=== PATIENT | male | born 1965 | race Hispanic/Latino ===

== ENCOUNTER 2019-02-06 08:10 | Emergency (ER) | payer OTHER ==
--- NOTE | 2019-02-06 09:06 | RAD REPORT ---
EXAM DESCRIPTION: CT - CTHCSPWOC - 02/06/2019 8:45 am CLINICAL HISTORY: Trauma, head and neck injury. left arm pain and numbness COMPARISON: Head C Spine Mpr Wo Con dated 01/09/2017 TECHNIQUE: Axial 5 mm thick images of the head were obtained. Axial 2 mm thick images of the cervical spine were obtained with sagittal and coronal reconstruction images generated and reviewed. All CT scans are performed using dose optimization technique as appropriate and may include automated exposure control or mA/KV adjustment according to patient size. FINDINGS: CT HEAD WITHOUT CONTRAST: No acute hemorrhage, hydrocephalus or extra-axial collection is identified.No areas of brain edema or midline shift. The paranasal sinuses and mastoids are clear.The calvarium is intact. CT CERVICAL SPINE WITHOUT CONTRAST: No fracture or subluxation.No prevertebral soft tissues swelling is identified. IMPRESSION: No acute intracranial or cervical spine findings.
[2019-02-06 09:24] LABS: BUN Blood Urea Nitrogen 12 mg/dL (7-18); Bicarbonate 25 mmol/L (21-32); Glucose Level 271 mg/dL (74-106); Potassium 4.1 mmol/L (3.5-5.1); Sodium Level 137 mmol/L (136-145); Troponin (Emerg Dept Use Only) < 0.02 ng/mL (0.0-0.045)
--- NOTE | 2019-02-06 09:30 | ER ---
Nurse's Notes [facility] Name: Ender Herrera Age: 53 yrs Sex: Male : 1965 Arrival Date: 02/06/2019 Time: 08:12 Bed 5 Private MD: Diagnosis: Paresthesia of skin;Pain in left upper arm Presentation: 02/06 08:32 Presenting complaint: Patient states: pain to back of left arm/left shoulder, iw intermittent since last Tuesday, has been taking ibuprofen/aspirin with no relief, started having numbness/tingling to left fingers this morning. Transition of care: patient was not received from another setting of care. 08:32 Method Of Arrival: Ambulatory iw 08:35 Onset of symptoms was February 02, 2019. Risk Assessment: Do you want to hurt yourself or iw someone else? Patient reports no desire to harm self or others. Initial Sepsis Screen: Does the patient meet any 2 criteria? No. Patient's initial sepsis screen is negative. Does the patient have a suspected source of infection? No. Patient's initial sepsis screen is negative. Care prior to arrival: None. 08:35 Acuity: MEMO 3 iw Historical: - Allergies: 08:38 pravastatin; iw 08:38 atorvastatin; iw - Home Meds: 08:38 clopidogrel 75 mg oral tab 1 tab once daily [Active]; Vitamin D Oral daily [Active]; iw metformin 1,000 mg Oral tab 1 tab 2 times per day [Active]; Tresiba FlexTouch U-100 100 unit/mL (3 mL) subcutaneous inpn 50 units daily [Active]; losartan 50 mg oral tab 1 tab once daily [Active]; gabapentin 300 mg oral cap daily [Active]; sildenafil 20 mg oral tab daily [Active]; - PMHx: 08:38 Myocardial infarction; iw - PSHx: 08:38 Heart stents; iw - Immunization history:: Adult Immunizations up to date. - Social history:: Smoking status: Patient uses tobacco products, denies chronic smoking, but will smoke occasionally. - Family history:: not pertinent. - Ebola Screening: : Patient negative for fever greater than or equal to 101.5 degrees Fahrenheit, and additional compatible Ebola Virus Disease symptoms Patient denies exposure to infectious person Patient denies travel to an Ebola-affected area in the 21 days before illness onset No symptoms or risks identified at this time. - Hospitalizations: : No recent hospitalization is reported. Screenin:57 Abuse screen: Denies threats or abuse. Nutritional screening: No deficits noted. tw2 Tuberculosis screening: No symptoms or risk factors identified. Fall Risk None identified. Assessment: 08:58 General: Appears in no apparent distress. well groomed, Behavior is calm, cooperative, tw2 appropriate for age. Pain: Complains of pain in left shoulder. Neuro: Level of Consciousness is awake, alert, obeys commands, Oriented to person, place, time, situation. Cardiovascular: Heart tones S1 S2 Patient's skin is warm and dry. Respiratory: Airway is patent Respiratory effort is even, unlabored, Respiratory pattern is regular, symmetrical, Breath sounds are clear bilaterally. GI: No signs and/or symptoms were reported involving the gastrointestinal system. Abdomen is round non-distended, Bowel sounds present X 4 quads. : No signs and/or symptoms were reported regarding the genitourinary system. EENT: No signs and/or symptoms were reported regarding the EENT system. Derm: No signs and/or symptoms reported regarding the dermatologic system. Musculoskeletal: Reports numbness in left hand. 09:50 Reassessment: Patient appears in no apparent distress at this time. No changes from tw2 previously documented assessment. Patient and/or family updated on plan of care and expected duration. Pain level reassessed. Patient is alert, oriented x 3, equal unlabored respirations, skin warm/dry/pink. Vital Signs: 08:38 BP 126 / 82; Pulse 65; Resp 16; Temp 98.2; Pulse Ox 98% on R/A; Weight 104.33 kg; iw Height 5 ft. 7 in. (170.18 cm); Pain 6/10; 09:18 BP 153 / 95; Pulse 73; Resp 16; Pulse Ox 100% on R/A; tw2 08:38 Body Mass Index 36.02 (104.33 kg, 170.18 cm) iw ED Course: 08:12 Patient arrived in ED. rg4 08:20 Bed in low position. Call light in reach. tw2 08:23 Morro Crain MD is Attending Physician. rn 08:35 Triage completed. iw 08:38 Arm band placed on. iw 08:49 Kimmy Hodge RN is Primary Nurse. tw2 08:57 CT Head C Spine In Process Unspecified. EDMS 08:57 Inserted saline lock: 20 gauge in right antecubital area, using aseptic technique. tw2 Blood collected. 08:59 BMP Sent. tw2 09:08 EKG done, by airbrush artist technical. reviewed by Morro Crain MD. 3 09:50 No provider procedures requiring assistance completed. IV discontinued, intact, tw2 bleeding controlled, No redness/swelling at site. Pressure dressing applied. Administered Medications: 09:32 Drug: Decadron 10 mg Route: IM; Site: right deltoid; 09:50 Follow up: Response: No adverse reaction tw2 Outcome: 09:29 Discharge ordered by MD. rn 09:50 Patient left the ED. bd 09:50 Discharged to home ambulatory. tw2 09:50 Condition: stable 09:50 Discharge instructions given to patient, Instructed on discharge instructions, follow up and referral plans. medication usage, Demonstrated understanding of instructions, follow-up care, medications, Prescriptions given X 1. Signatures: Dispatcher [employer] EDNH Bela Ronquillo Gilberto Null, RN TAINA Eulalio, Donna, RN TAINA Morro Crain MD MD rn Wise, Tara, RN RN [facility] Margarita Fuentes 4 Krista Salas [facility]
--- NOTE | 2019-02-06 09:30 | EDPHYS ---
Physician Documentation [facility] Name: Ender Herrera Age: 53 yrs Sex: Male : 1965 Arrival Date: 02/06/2019 Time: 08:12 Bed 5 Private MD: ED Physician Morro Crain HPI: 02/06 08:32 This 53 yrs old Male presents to ER via Unassigned with complaints of Shoulder rn Pain, Numbness Of Hand. 08:32 The patient or guardian complains of pain. left shoulder. Onset: The symptoms/episode rn began/occurred 4 day(s) ago. Modifying factors: the symptoms are alleviated by nothing. The symptoms are aggravated by movement. Associated signs and symptoms: Pertinent positives: Numbness in left arm tingling, Pertinent negatives: abdominal pain, chest pain, diaphoresis, shortness of breath. Severity of symptoms: At their worst the symptoms were mild, in the emergency department the symptoms are unchanged. The patient has not experienced similar symptoms in the past. Reports 4-5 days of left shoulder/arm pain, now with tingling to fingers, no trauma, reports treating it like pinched nerve and better with icy hot and OTC meds, but tingling popped up today and he came in to make sure nothing else was happening. Pt has had heart attack in past, but denies chest pain/sob, feels nothing like previous [place].. Historical: - Allergies: 08:38 pravastatin; iw 08:38 atorvastatin; iw - Home Meds: 08:38 clopidogrel 75 mg oral tab 1 tab once daily [Active]; Vitamin D Oral daily [Active]; iw metformin 1,000 mg Oral tab 1 tab 2 times per day [Active]; Tresiba FlexTouch U-100 100 unit/mL (3 mL) subcutaneous inpn 50 units daily [Active]; losartan 50 mg oral tab 1 tab once daily [Active]; gabapentin 300 mg oral cap daily [Active]; sildenafil 20 mg oral tab daily [Active]; - PMHx: 08:38 Myocardial infarction; iw - PSHx: 08:38 Heart stents; iw - Immunization history:: Adult Immunizations up to date. - Social history:: Smoking status: Patient uses tobacco products, denies chronic smoking, but will smoke occasionally. - Family history:: not pertinent. - Ebola Screening: : Patient negative for fever greater than or equal to 101.5 degrees Fahrenheit, and additional compatible Ebola Virus Disease symptoms Patient denies exposure to infectious person Patient denies travel to an Ebola-affected area in the 21 days before illness onset No symptoms or risks identified at this time. - Hospitalizations: : No recent hospitalization is reported. ROS: 08:32 Constitutional: Negative for fever, chills, and weight loss, Eyes: Negative for injury, rn pain, redness, and discharge, Neck: Negative for injury, pain, and swelling, Cardiovascular: Negative for chest pain, palpitations, and edema, Respiratory: Negative for shortness of breath, cough, wheezing, and pleuritic chest pain, Abdomen/GI: Negative for abdominal pain, nausea, vomiting, diarrhea, and constipation, MS/Extremity: Negative for injury and deformity, Skin: Negative for injury, rash, and discoloration, Neuro: Negative for headache, tingling, and seizure. Exam: 08:32 Constitutional: This is a well developed, well nourished patient who is awake, alert, rn and in no acute distress. Ambulatory to room without difficulty or assistance. Head/Face: Normocephalic, atraumatic. Neck: Trachea midline, no thyromegaly or masses palpated, and no cervical lymphadenopathy. Supple, full range of motion without nuchal rigidity, or vertebral point tenderness. No Meningismus. Cardiovascular: Regular rate and rhythm. No pulse deficits. Respiratory: No increased work of breathing, no retractions or nasal flaring. Skin: Warm, dry with normal turgor. Normal color with no rashes, no lesions, and no evidence of cellulitis. MS/ Extremity: Pulses equal, no cyanosis. Neurovascular intact. Full, normal range of motion. Equal circumference. Neuro: Awake and alert, GCS 15, oriented to person, place, time, and situation. Cranial nerves II-XII grossly intact. Motor strength 5/5 in all extremities. Sensory grossly intact. Cerebellar exam normal. Normal gait. Vital Signs: 08:38 BP 126 / 82; Pulse 65; Resp 16; Temp 98.2; Pulse Ox 98% on R/A; Weight 104.33 kg; iw Height 5 ft. 7 in. (170.18 cm); Pain 6/10; 09:18 BP 153 / 95; Pulse 73; Resp 16; Pulse Ox 100% on R/A; tw2 08:38 Body Mass Index 36.02 (104.33 kg, 170.18 cm) iw MDM: 08:23 Patient medically screened. rn 09:27 Differential diagnosis: tendonitis, radiculopathy, referred pain. Data reviewed: vital rn signs, nurses notes, lab test result(s), EKG, radiologic studies, CT scan, and as a result, I will discharge patient. Counseling: I had a detailed discussion with the patient and/or guardian regarding: the historical points, exam findings, and any diagnostic results supporting the discharge/admit diagnosis, lab results, radiology results, the need for outpatient follow up, to return to the emergency department if symptoms worsen or persist or if there are any questions or concerns that arise at home. Response to treatment: the patient's symptoms have mildly improved after treatment, and as a result, I will discharge patient. Special discussion: I discussed with the patient/guardian in detail that at this point there is no indication for admission to the hospital. It is understood, however, that if the symptoms persist or worsen the patient needs to return immediately for re-evaluation. Based on the history and exam findings, there is no indication for further emergent testing or inpatient evaluation. I discussed with the patient/guardian the need to see the primary care provider for further evaluation of the symptoms. ED course: Pt without chest pain or sob, symptoms for a few days now with no acute findings on ecg/trop/ct head/cspine, most likely radiculopathy, will treat with steroids and pcp f/u. Return precautions given and understood.. 02/06 08:32 Order name: Troponin (emerg Dept Use Only); Complete Time: 09:27 rn 02/06 08:32 Order name: BMP; Complete Time: 09:27 rn 02/06 08:32 Order name: CT Head C Spine; Complete Time: 09:22 rn 02/06 08:32 Order name: IV Start; Complete Time: 08:57 rn 02/06 08:32 Order name: EKG; Complete Time: 08:36 rn 02/06 08:32 Order name: EKG - Nurse/Tech; Complete Time: 08:59 rn Administered Medications: 09:32 Drug: Decadron 10 mg Route: IM; Site: right deltoid; sg 09:50 Follow up: Response: No adverse reaction tw2 Disposition: 02/06/19 09:29 Discharged to Home. Impression: Paresthesia of skin, Pain in left upper arm. - Condition is Stable. - Discharge Instructions: Cervical Radiculopathy, Musculoskeletal Pain, Pain Without a Known Cause, Paresthesia. - Prescriptions for Medrol (Brando) 4 mg Oral Tablets, Dose Pack - take 1 tablet by ORAL route as directed - follow package instructions; 1 packet. - Medication Reconciliation Form, Thank You Letter, Antibiotic Education, Prescription Opioid Use, Work release form form. - Follow up: Private Physician; When: As needed; Reason: Recheck today's complaints, Re-evaluation by your physician. - Problem is an ongoing problem. - Symptoms have improved. Signatures: Dispatcher [employer] EDMS Bela Ronquillo Steven, RN RN sg Williams, Irene, RN RN iw Morro Crain MD MD rn Wise, Kimmy HER tw2 Corrections: (The following items were deleted from the chart) 09:50 09:29 02/06/2019 09:29 Discharged to Home. Impression: Paresthesia of skin; Pain in bd left upper arm. Condition is Stable. Forms are Work release form, Medication Reconciliation Form, Thank You Letter, Antibiotic Education, Prescription Opioid Use. Follow up: Private Physician; When: As needed; Reason: Recheck today's complaints, Re-evaluation by your physician. Problem is an ongoing problem. Symptoms have improved. rn
[2019-02-06] MEDS ORDERED: dexAMETHasone 10 MG/ML VIAL ONE (09:46)
--- NOTE | 2019-02-06 13:34 | EKG ---
Test Date: 2019-02-06 Test Time: 09:06:23 Hris Developer: KRISTINE MEASUREMENT RESULTS: Intervals: Rate: 67 KS: 154 QRSD: 92 QT: 404 QTc: 426 [place]: P: 53 KS: 154 QRS: -50 T: 26 INTERPRETIVE STATEMENTS: Normal sinus rhythm Left axis deviation Inferior infarct, age undetermined Anterior infarct, age undetermined Abnormal ECG Compared to ECG 01/09/2017 15:21:23 No significant changes Electronically Signed On 02-06-19 13:33:57 CDT by Cleve Gage
== END 2019-02-06 09:50 | disposition home or self-care (01) ==
LOC: ER 08:10
DX: M25.512 Pain in left shoulder (principal); R20.2 Paresthesia of skin; I25.2 Old myocardial infarction; Z72.0 Tobacco use; Z88.8 Allergy status to other drugs, medicaments and biological substances
CPT/HCPCS: 36415; 70450; 72125; 80048; 84484; 93005; 96372; 99284; J1100

== ENCOUNTER 2021-01-02 20:15 | Observation (INO) | payer OTHER, SELFPAY ==
[2021-01-02 20:52] LABS: Absolute Lymphocytes (CBC) 2.4 K/uL (0.7-4.9); Lymphocytes % 36.2 % (15.3-44.8); MPV 9.5 fL (7.6-11.3); RBC Red Blood Cell Count 4.38 M/uL (4.33-5.43)
[2021-01-02 21:01] LABS: Protime INR 0.87
[2021-01-02 21:14] LABS: ALT/SGPT 27 U/L (12-78); AST/SGOT 10 U/L (15-37); Albumin 3.7 g/dL (3.4-5.0); Alkaline Phosphatase 169 U/L (45-117); BUN Blood Urea Nitrogen 12 mg/dL (7-18); Bicarbonate 27 mmol/L (21-32); Bilirubin Direct < 0.1 mg/dL (0-0.2); Bilirubin Total 0.2 mg/dL (0.2-1.0); Glucose Level 328 mg/dL (74-106); NT PRO-BNP 77 pg/mL (<125); Potassium 3.8 mmol/L (3.5-5.1); Protein, Total 7.5 g/dL (6.4-8.2); Sodium Level 140 mmol/L (136-145); Troponin (Emerg Dept Use Only) < 0.02 ng/mL (0.0-0.045)
--- NOTE | 2021-01-02 21:44 | RAD REPORT ---
EXAM DESCRIPTION: RAD - Chest Single View - 01/02/2021 9:37 pm CLINICAL HISTORY: CHEST PAIN Chest pain. COMPARISON: <Comparisons> FINDINGS: Portable technique limits examination quality. The lungs are grossly clear. The heart is normal in size. No displaced fractures. IMPRESSION: No acute intrathoracic process suspected.
--- NOTE | 2021-01-02 22:44 | ER ---
Nurse's Notes [facility] Name: Ender Herrera Age: 55 yrs Sex: Male : 1965 Arrival Date: 01/02/2021 Time: 20:37 Bed 3 Private MD: Diagnosis: Chest pain, unspecified Presentation: 01/02 20:39 Chief complaint: Patient states: chest pain started at 1815 this evening, took aspirin ca1 325 mg x 2 tabs, a little relief. Now pain radiates to the back. HX of OR on 2012. Denies N/V/dizziness. Coronavirus screen: Client denies travel out of the [place] in the last 14 days. At this time, the client does not indicate any symptoms associated with coronavirus-19. Ebola Screen: Patient negative for fever greater than or equal to 101.5 degrees Fahrenheit, and additional compatible Ebola Virus Disease symptoms Patient denies exposure to infectious person. Patient denies travel to an Ebola-affected area in the 21 days before illness onset. No symptoms or risks identified at this time. Initial Sepsis Screen: Does the patient meet any 2 criteria? No. Patient's initial sepsis screen is negative. Does the patient have a suspected source of infection? No. Patient's initial sepsis screen is negative. Risk Assessment: Do you want to hurt yourself or someone else? Patient reports no desire to harm self or others. 20:39 Method Of Arrival: Ambulatory ca1 20:39 Acuity: MEMO 3 ca1 22:36 Onset of symptoms was January 02, 2021. bb Historical: - Allergies: 20:42 atorvastatin; ca1 20:42 pravastatin; ca1 - Home Meds: 20:42 clopidogrel 75 mg Oral tab 1 tab once daily [Active]; ca1 20:43 metformin 1,000 mg Oral tab 1 tab 2 times per day [Active]; ca1 - PMHx: 20:42 Myocardial infarction; ca1 20:43 Diabetes - IDDM; Hypertension; High Cholesterol; ca1 - PSHx: 20:42 Heart stents; ca1 - Immunization history:: Client reports receiving the 2nd dose of the Covid vaccine, Client reports receiving the 1st dose of the Covid vaccine, Flu vaccine is up to date. - Social history:: Smoking status: Patient reports the use of cigarette tobacco products, smokes one-half pack cigarettes per day. Screenin:09 Abuse screen: Denies threats or abuse. Nutritional screening: No deficits noted. ea Tuberculosis screening: No symptoms or risk factors identified. Fall Risk IV access (20 points). Assessment: 22:34 General: Appears in no apparent distress. Behavior is calm, cooperative. Pain: Denies bb pain. Pain does not radiate. Pain began suddenly. Neuro: Level of Consciousness is awake, alert, obeys commands, Oriented to person, place, time, situation. Cardiovascular: Capillary refill < 3 seconds Patient's skin is warm and dry. Rhythm is sinus rhythm. Respiratory: Airway is patent Respiratory effort is even, unlabored, Respiratory pattern is regular. GI: No signs and/or symptoms were reported involving the gastrointestinal system. Derm: Skin is pink, warm \T\ dry. 23:24 Reassessment: Patient is alert, oriented x 3, equal unlabored respirations, skin bb warm/dry/pink. pt resting quietly, awaiting room assignment. 01/03 01:11 Reassessment: pt appears to be sleeping, eyes closed, resp unlabored, report called to venkata De Paz RN for room 208. Vital Signs: 01/02 20:39 BP 122 / 77; Pulse 80; Resp 17 S; Temp 97.8(TE); Pulse Ox 97% on R/A; Weight 94.35 kg ca1 (R); Height 5 ft. 7 in. (170.18 cm) (R); Pain 1/10; 22:16 BP 137 / 86; Pulse 69; Resp 22; Pulse Ox 97% on R/A; Pain 0/10; bb 23:25 BP 114 / 79; Pulse 68; Resp 18 S; Pulse Ox 95% on R/A; bb 01/03 01:11 BP 116 / 76; Pulse 64; Resp 14 S; Pulse Ox 97% on R/A; bb 01/02 20:39 Body Mass Index 32.58 (94.35 kg, 170.18 cm) ca1 ED Course: 01/02 20:37 Patient arrived in ED. bp1 20:38 Initial lab(s) drawn, by me, sent to lab. Inserted saline lock: 20 gauge in right ca1 forearm, using aseptic technique. Blood collected. Patient maintains SpO2 saturation greater than 95% on room air. 20:41 Triage completed. ca1 20:43 Arm band placed on right wrist. ca1 21:37 XRAY Chest (1 view) In Process Unspecified. EDMS 22:06 Arturo Alvarado MD is Attending Physician. [facility] 22:09 Brie Gong, RN is Primary Nurse. ea 22:36 Patient admitted, IV remains in place. bb 22:36 No provider procedures requiring assistance completed. bb 22:36 Patient has correct armband on for positive identification. monitoring tech on. Pulse bb ox on. NIBP on. Warm blanket given. 22:43 Vince Crain MD is Hospitalizing Provider. [facility] Administered Medications: 22:55 Drug: Zofran (Ondansetron) 4 mg Route: IVP; Site: right forearm; ea 23:25 Follow up: Response: No adverse reaction 22:55 Drug: Insulin Regular Human 6 units {Co-Signature: venkata (Nata Suero RN).} Route: ea Sub-Q; Site: right lower abdomen; 23:25 Follow up: Response: No adverse reaction 01/03 01:11 Not Given (Patient Refused): morphine 2 mg IVP once; (PAIN>8) RASS on ADMN: Combtv4, bb Very Agttd3, Agttd2, Rstlss1, AlertClm0, Drwsy-1, LtSdtn-2, ModSdtn-3, DpSdtn-4, UnArsble-5 x2 Outcome: 01/02 22:36 Instructed on the need for admit. bb 22:43 Decision to Hospitalize by Provider. [facility] 01/03 00:37 Admitted to Tele accompanied by nurse, via wheelchair, room 208. bb Condition: stable 01:30 Patient left the ED. bb Signatures: Dispatcher [employer] EDMS Nata Suero RN RN bb Antunez, Elena, RN RN ea Acob, Cheryl RN Hailey Camargo Maurice, MD MD [facility] Nata hastings
--- NOTE | 2021-01-02 22:44 | EDPHYS ---
Physician Documentation [facility] Name: Ender Herrera Age: 55 yrs Sex: Male : 1965 Arrival Date: 01/02/2021 Time: 20:37 Bed 3 Private MD: ED Physician Arturo Alvarado HPI: 01/02 22:39 This 55 yrs old Male presents to ER via Ambulatory with complaints of Chest mh7 Pain. 22:39 The patient or guardian reports chest pain that is located primarily in the anterior mh7 chest wall, left. Onset: today, at 18:15. The pain radiates to left back. Associated signs and symptoms: Pertinent negatives: abdominal pain, cough, diaphoresis, dizziness, headache, lower extremity pain, lower extremity swelling, lightheadedness, nausea, near syncope, palpitations, recent travel, shortness of breath, syncope, vomiting. The chest pain is described as a pressure. Duration: The patient or guardian reports multiple episodes, that are intermittent, that wax and wane. Modifying factors: The symptoms are alleviated by nothing. the symptoms are aggravated by nothing. Severity of pain: At its worst the pain was moderate today, in the emergency department the pain has improved moderately. Historical: - Allergies: 20:42 atorvastatin; ca1 20:42 pravastatin; ca1 - Home Meds: 20:42 clopidogrel 75 mg Oral tab 1 tab once daily [Active]; ca1 20:43 metformin 1,000 mg Oral tab 1 tab 2 times per day [Active]; ca1 - PMHx: 20:42 Myocardial infarction; ca1 20:43 Diabetes - IDDM; Hypertension; High Cholesterol; ca1 - PSHx: 20:42 Heart stents; ca1 - Immunization history:: Client reports receiving the 2nd dose of the Covid vaccine, Client reports receiving the 1st dose of the Covid vaccine, Flu vaccine is up to date. - Social history:: Smoking status: Patient reports the use of cigarette tobacco products, smokes one-half pack cigarettes per day. ROS: 22:39 Constitutional: Negative for fever, chills, and weight loss, Eyes: Negative for injury, mh7 pain, redness, and discharge, ENT: Negative for injury, pain, and discharge, Neck: Negative for injury, pain, and swelling, Respiratory: Negative for shortness of breath, cough, wheezing, and pleuritic chest pain, Abdomen/GI: Negative for abdominal pain, nausea, vomiting, diarrhea, and constipation, : Negative for injury, bleeding, discharge, and swelling, MS/Extremity: Negative for injury and deformity, Skin: Negative for injury, rash, and discoloration, Neuro: Negative for headache, weakness, numbness, tingling, and seizure, Psych: Negative for depression, anxiety, suicide ideation, homicidal ideation, and hallucinations, Allergy/Immunology: Negative for hives, rash, and allergies, Endocrine: Negative for neck swelling, polydipsia, polyuria, polyphagia, and marked weight changes, Hematologic/Lymphatic: Negative for swollen nodes, abnormal bleeding, and unusual bruising. Exam: 22:39 Constitutional: This is a well developed, well nourished patient who is awake, alert, mh7 and in no acute distress. Head/Face: Normocephalic, atraumatic. Eyes: Pupils equal round and reactive to light, extra-ocular motions intact. Lids and lashes normal. Conjunctiva and sclera are non-icteric and not injected. Cornea within normal limits. Periorbital areas with no swelling, redness, or edema. Neck: Trachea midline, no thyromegaly or masses palpated, and no cervical lymphadenopathy. Supple, full range of motion without nuchal rigidity, or vertebral point tenderness. No Meningismus. Chest/axilla: Normal chest wall appearance and motion. Nontender with no deformity. No lesions are appreciated. Cardiovascular: Regular rate and rhythm with a normal S1 and S2. No gallops, murmurs, or rubs. Normal PMI, no JVD. No pulse deficits. Respiratory: Lungs have equal breath sounds bilaterally, clear to auscultation and percussion. No rales, rhonchi or wheezes noted. No increased work of breathing, no retractions or nasal flaring. Abdomen/GI: Soft, non-tender, with normal bowel sounds. No distension or tympany. No guarding or rebound. No evidence of tenderness throughout. Back: No spinal tenderness. No costovertebral tenderness. Full range of motion. Skin: Warm, dry with normal turgor. Normal color with no rashes, no lesions, and no evidence of cellulitis. MS/ Extremity: Pulses equal, no cyanosis. Neurovascular intact. Full, normal range of motion. Neuro: Awake and alert, GCS 15, oriented to person, place, time, and situation. Cranial nerves II-XII grossly intact. Motor strength 5/5 in all extremities. Sensory grossly intact. Cerebellar exam normal. Normal gait. Psych: Awake, alert, with orientation to person, place and time. Behavior, mood, and affect are within normal limits. Vital Signs: 20:39 BP 122 / 77; Pulse 80; Resp 17 S; Temp 97.8(TE); Pulse Ox 97% on R/A; Weight 94.35 kg ca1 (R); Height 5 ft. 7 in. (170.18 cm) (R); Pain 1/10; 22:16 BP 137 / 86; Pulse 69; Resp 22; Pulse Ox 97% on R/A; Pain 0/10; bb 23:25 BP 114 / 79; Pulse 68; Resp 18 S; Pulse Ox 95% on R/A; bb 01/03 01:11 BP 116 / 76; Pulse 64; Resp 14 S; Pulse Ox 97% on R/A; bb 01/02 20:39 Body Mass Index 32.58 (94.35 kg, 170.18 cm) ca1 MDM: 01/02 22:39 Differential diagnosis: abnormal EKG, acute myocardial infarction, acute pericarditis, mh7 anxiety, coronary artery disease chest wall pain, congestive heart failure costochondritis, myocarditis, pericarditis, pneumonia. HEART Score: History: Highly Suspicious (2), ECG: Non specific repolarization disturbance / LBTB / PM (1), Age: > 45 and < 65 years (1), Risk Factors: > or = 3 Risk factors for atherosclerotic disease (2), [Hypercholesterolemia] [Hypertension] [DM] [Active Smoker] Troponin: < or = 1 x Normal Limit (0), Total Score = 6. The patient was not given aspirin in the Emergency Department. Patient reports taking aspirin within the past 24 hours. Data reviewed: vital signs, nurses notes, lab test result(s), cardiac enzymes, CBC, electrolytes, EKG, radiologic studies, plain films. Data interpreted: Pulse oximetry: on room air is 97 %. Interpretation: normal. Counseling: I had a detailed discussion with the patient and/or guardian regarding: the historical points, exam findings, and any diagnostic results supporting the discharge/admit diagnosis, the presence of at least one elevated blood pressure reading (>120/80) during this emergency department visit, lab results, radiology results, the need for further work-up and treatment in the hospital. 22:[address] [facility] 01/02 20:38 Order name: Basic Metabolic Panel; Complete Time: 22:01/02 20:38 Order name: CBC with Diff; Complete Time: 22:01/02 20:38 Order name: LFT's; Complete Time: :01/02 20:38 Order name: Magnesium; Complete Time: :01/02 20:38 Order name: NT PRO-BNP; Complete Time: :01/02 20:38 Order name: PT-INR; Complete Time: :01/02 20:38 Order name: Troponin (emerg Dept Use Only); Complete Time: : [facility] 01/02 20:38 Order name: XRAY Chest (1 view); Complete Time: 22:01/02 20:38 Order name: EKG; Complete Time: 20:39 01/02 20:38 Order name: Cardiac monitoring; Complete Time: 22:01/02 20:38 Order name: EKG - Nurse/Tech; Complete Time: 20:38 01/02 20:38 Order name: IV Saline Lock; Complete Time: 20:38 01/02 20:38 Order name: Labs collected and sent; Complete Time: 20:38 [facility] 01/02 20:38 Order name: O2 Per Protocol; Complete Time: 20:38 [facility] 01/02 20:38 Order name: O2 Sat Monitoring; Complete Time: 20:38 ca1 Administered Medications: 22:55 Drug: Zofran (Ondansetron) 4 mg Route: IVP; Site: right forearm; ea 23:25 Follow up: Response: No adverse reaction 22:55 Drug: Insulin Regular Human 6 units {Co-Signature: venkata (Nata Suero RN).} Route: ea Sub-Q; Site: right lower abdomen; 23:25 Follow up: Response: No adverse reaction venkata 01/03 01:11 Not Given (Patient Refused): morphine 2 mg IVP once; (PAIN>8) RASS on ADMN: Combtv4, bb Very Agttd3, Agttd2, Rstlss1, AlertClm0, Drwsy-1, LtSdtn-2, ModSdtn-3, DpSdtn-4, UnArsble-5 x2 Disposition: 01/02/21 22:43 Hospitalization ordered by Vince Crain for Observation. Preliminary diagnosis is Chest pain, unspecified. - Bed requested for Telemetry/MedSurg (observation). - Status is Observation. bb - Condition is Stable. - Problem is new. - Symptoms have improved. Signatures: Dispatcher [employer] EDNata Ibarra, RN Brie Olmstead, RN Andreea Shen ea RN TAINA ca1 Artuor Alvarado MD MD [facility] Merna Jo RN RN rd1 Nata Suero RN bb Corrections: (The following items were deleted from the chart) 00:18 01/02 22:43 Hospitalization Ordered by Vince Crain MD for Observation. Preliminary rd1 diagnosis is Chest pain, unspecified. Bed requested for Telemetry/MedSurg (observation). Status is Observation. Condition is Stable. Problem is new. Symptoms have improved. [facility] 01/03 01:30 00:18 01/02/2021 22:43 Hospitalization Ordered by Vince Crain MD for Observation. bb Preliminary diagnosis is Chest pain, unspecified. Bed requested for Telemetry/MedSurg (observation). Status is Observation. Condition is Stable. Problem is new. Symptoms have improved. rd1
--- NOTE | 2021-01-02 22:55 | P.HP ---
Certification for Inpatient Patient admitted to: Observation With expected LOS: <2 Midnights Patient will require the following post-hospital care: None Practitioner: I am a practitioner with admitting privileges, knowledge of patient current condition, hospital course, and medical plan of care. Services: Services provided to patient in accordance with Admission requirements found in Title 42 Section 412.3 of the Code of Federal Regulations Patient History Date of Service: 01/02/21 Reason for admission: Chest pain History of Present Illness: 55-year-old male with history of hypertension, hyperlipidemia, CAD, diabetes mellitus type 2 presents emergency department for chest pain. Patient reports chest pain began this evening described as sharp, radiating to the back, reports pain is similar to his previous [place]. Patient evaluated in the emergency department, labs significant for glucose 328 initial troponin negative EKG nonspecific chest x-ray unremarkable. Pain has improved significantly, minimal this time. Patient reports he had a stent a few years back. ED provider wishes to admit for chest pain rule out. 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 moist/pink, EOMI, Sclerae nonicteric Neck: Supple, 2+ carotid pulse no bruit, No LAD, Without JVD or thyroid abnormality Respiratory: Clear to auscultation bilaterally, Normal air movement Cardiovascular: Regular rate/rhythm, Normal S1 S2 Gastrointestinal: Normal bowel sounds, No tenderness Musculoskeletal: No tenderness Integumentary: No rashes Neurological: Normal gait, Normal speech, Normal strength at 5/5 x4 extr, Normal tone, Normal affect Lymphatics: No axilla or inguinal lymphadenopathy - Studies Laboratory Data (last 24 hrs) 01/02/21 20:37: PT 10.0, INR 0.87 01/02/21 20:37: WBC 6.50, Hgb 13.5 L, Hct 40.0, Plt Count 222 01/02/21 20:37: Sodium 140, Potassium 3.8, BUN 12, Creatinine 0.71, Glucose 328 H, Magnesium 2.0, Total Bilirubin 0.2, AST 10 L, ALT 27, Alkaline Phosphatase 169 H Assessment and Plan - Plan Assessment Chest pain, history of CAD rule out ACS Diabetes mellitus type 2 with hyperglycemia Hypertension, hyperlipidemia Plan Chest pain, history of CAD rule out ACS: Monitor on telemetry, trend troponins, daily aspirin, Plavix. Patient intolerant of statin therapy, reports he is allergic and gets rashes. P.r.n. pain medications, cardiology consulted. DVT prophylaxis Lovenox 40 mg subcutaneous once daily. Diabetes mellitus type 2 with hyperglycemia: A.c. HS Accu-Cheks, sliding scale insulin therapy. Patient reports A1c approximately 1 month ago was 12.4, he was then initiated on insulin therapy. Hypertension, hyperlipidemia: Continue home medications, patient not currently on any statins as he is allergic. Discharge Plan: Home Plan to discharge in: 24 Hours - Advance Directives Does patient have a Living Will: No Does patient have a Durable POA for Healthcare: No - Code Status/Comfort Care Code Status Assessed: Yes (Full code) Critical Care: No Time Spent Managing Pts Care (In Minutes): 55
[2021-01-02] MEDS ORDERED: MORPHINE 2 MG/ML SYR ONE (23:12)
[2021-01-02] MEDS ORDERED: ONDANSETRON 4 MG/2 ML VIAL ONE (23:12)
[2021-01-02] MEDS ORDERED: INSULIN -REGULAR HUMAN 50 UNIT/0.5 ML ML ONE (23:13)
[2021-01-03] MEDS ORDERED: ONDANSETRON 4 MG/2 ML VIAL IV PRN (01:36)
[2021-01-03] MEDS ORDERED: MORPHINE 2 MG/ML SYR IV PRN (01:36)
[2021-01-03 02:12] VITALS: BMI 32.5
--- NOTE | 2021-01-03 06:57 | EKG ---
Test Date: 2021-01-02 Test Time: 20:28:00 Electric Power Superintendent: NIKOLAY MEASUREMENT RESULTS: Intervals: Rate: 78 WV: 152 QRSD: 82 QT: 392 QTc: 446 [place]: P: 66 WV: 152 QRS: -50 T: 40 INTERPRETIVE STATEMENTS: Normal sinus rhythm Left axis deviation Low voltage QRS Inferior infarct, age undetermined Cannot rule out Anterior infarct, age undetermined Abnormal ECG Compared to ECG 02/06/2019 09:06:23 Low QRS voltage now present Myocardial infarct finding still present Electronically Signed On 01-03-21 06:56:13 CDT by Cleve Gage
[2021-01-03] MEDS: INSULIN -REGULAR HUMAN 50 UNIT/0.5 ML ML SQ SCH ×2 (07:30→12:50)
[2021-01-03 08:12] LABS: Absolute Lymphocytes (CBC) 1.9 K/uL (0.7-4.9); Basophils % 0.7 % (0-1.3); Hematocrit 38.4 % (39.6-49.0); Lymphocytes % 26.6 % (15.3-44.8); MPV 9.3 fL (7.6-11.3); RBC Red Blood Cell Count 4.15 M/uL (4.33-5.43)
[2021-01-03 08:36] LABS: ALT/SGPT 25 U/L (12-78); Albumin 3.3 g/dL (3.4-5.0); Alkaline Phosphatase 119 U/L (45-117); BUN Blood Urea Nitrogen 10 mg/dL (7-18); Bicarbonate 27 mmol/L (21-32); Bilirubin Total 0.2 mg/dL (0.2-1.0); Glucose Level 191 mg/dL (74-106); HDL Cholesterol 51 mg/dL (40-60); LDL Cholesterol, Calculated 85 (<130); Protein, Total 6.4 g/dL (6.4-8.2); Sodium Level 139 mmol/L (136-145); Troponin I < 0.02 ng/mL (0.0-0.045)
[2021-01-03 08:38] LABS: AST/SGOT 15 U/L (15-37); Potassium 4.1 mmol/L (3.5-5.1)
[2021-01-03] MEDS ORDERED: CLOPIDOGREL 75 MG TABLET PO SCH (09:00)
[2021-01-03] MEDS ORDERED: ENOXAPARIN 40 MG/0.4 ML SQ SCH (09:00)
[2021-01-03] MEDS ORDERED: LOSARTAN POTASSIUM 50 MG TABLET PO SCH (09:00)
[2021-01-03] MEDS ORDERED: SERTRALINE HCL 50 MG TAB PO SCH (09:00)
[2021-01-03] MEDS ORDERED: GABAPENTIN 300 MG CAP PO SCH (09:00)
[2021-01-03] MEDS ORDERED: ASPIRIN EC 81 MG TAB PO SCH (09:00)
[2021-01-03 09:56] VITALS: BP 124/74; TEMP 97.5
[2021-01-03 12:15] VITALS: O2SAT 95
--- NOTE | 2021-01-03 13:41 | P.DS ---
Admission Date: 01/02/21 Discharge Date: 01/03/21 Disposition: ROUTINE DISCHARGE Discharge Condition: GOOD Reason for Admission: Chest pain Consultations: Cardiology - Dr. Gage Procedures: CXR (01/02): no acute intrathoracic process suspected. Problem list Chest pain History of CAD s/p stent Diabetes mellitus type 2 with hyperglycemia, non-insulin dependent Hypertension Hyperlipidemia Brief History of Present Illness: 55-year-old male with history of hypertension, hyperlipidemia, CAD, diabetes mellitus type 2 presents emergency department for chest pain. Patient reports chest pain began this evening described as sharp, radiating to the back, reports pain is similar to his previous [place]. Patient evaluated in the emergency department, labs significant for glucose 328 initial troponin negative EKG nonspecific chest x-ray unremarkable. Pain has improved significantly, minimal this time. Patient reports he had a stent a few years back. ED provider wishes to admit for chest pain rule out. Hospital Course: EKG without acute ischemic changes, troponins were trended and remained negative x3. Cardiology was consulted. Recommended discharge home and patient to follow up this coming Tuesday, and to be scheduled for outpatient stress test / further evaluation. Patient's chest pain resolved shortly after arrival in the ER. Vital Signs/Physical Exam: Temp Pulse Resp BP Pulse Ox 97.5 F 70 18 124/74 95 01/03/21 08:00 01/03/21 08:00 01/03/21 08:00 01/03/21 08:00 01/03/21 08:00 General: Alert, In no apparent distress, Oriented x3 HEENT: Sclerae nonicteric Neck: Supple Respiratory: Clear to auscultation bilaterally Cardiovascular: No edema, Regular rate/rhythm, No murmurs Gastrointestinal: Soft and benign, Non-distended Musculoskeletal: No contractures, No tenderness Integumentary: No rashes, No breakdown Neurological: Normal speech, Normal strength at 5/5 x4 extr, Normal affect Laboratory Data at Discharge: WBC 7.00 K/uL (4.3-10.9) 01/03/21 07:58 Hgb 12.6 g/dL (13.6-17.9) L 01/03/21 07:58 Hct 38.4 % (39.6-49.0) L 01/03/21 07:58 Plt Count 208 K/uL (152-406) 01/03/21 07:58 PT 10.0 SECONDS (9.5-12.5) 01/02/21 20:37 INR 0.87 01/02/21 20:37 Sodium 139 mmol/L (136-145) 01/03/21 07:58 Potassium 4.1 mmol/L (3.5-5.1) 01/03/21 07:58 BUN 10 mg/dL (7-18) 01/03/21 07:58 Creatinine 0.49 mg/dL (0.55-1.3) L 01/03/21 07:58 Glucose 191 mg/dL (74-106) H 01/03/21 07:58 Magnesium 2.0 mg/dL (1.8-2.4) 01/03/21 07:58 Total Bilirubin 0.2 mg/dL (0.2-1.0) 01/03/21 07:58 AST 15 U/L (15-37) 01/03/21 07:58 ALT 25 U/L (12-78) 01/03/21 07:58 Alkaline Phosphatase 119 U/L (45-117) H 01/03/21 07:58 Troponin I < 0.02 ng/mL (0.0-0.045) 01/03/21 13:05 Triglycerides 116 mg/dL (<150) 01/03/21 07:58 Cholesterol 159 mg/dL (<200) 01/03/21 07:58 HDL Cholesterol 51 mg/dL (40-60) 01/03/21 07:58 Cholesterol/HDL Ratio 3.12 01/03/21 07:58 Home Medications: Clopidogrel Bisulfate [Clopidogrel] 75 mg PO DAILY 01/03/21 Gabapentin 300 mg PO DAILY 01/03/21 Glimepiride [Amaryl*] 2 mg PO BIDWM 01/03/21 Losartan Potassium [Cozaar*] 50 mg PO DAILY 01/03/21 Metformin HCl [Glucophage] 1,000 mg PO BIDWM 01/03/21 Semaglutide [Ozempic] 0.5 mg SQ MARTINEZ 01/03/21 Sertraline [Zoloft*] 25 mg PO DAILY 01/03/21 Physician Discharge Instructions: Your chest pain was evaluated by EKG and cardiac enzymes (troponin). These were normal and did not suggest any heart damage/ heart attack. You were evaluated by Dr. Gage, and he recommended you follow up with him in the office on Tuesday for further evaluation. Continue medications as previously prescribed. Diet: AHA Activity: Ad aime Followup: Cleve Gage MD [ACTIVE - CAN ADMIT] - Unknown,U [Primary Care Provider] - Time spent managing pt's care (in minutes): 45
--- NOTE | 2021-01-05 09:46 | CON ---
Date of Consultation: 01/02/2021 Reason For Consultation: Atypical chest pain. History Of Present Illness: Mr. Herrera is a 55-year-old Latin-Iranian male, has had a history of h ypertension, dyslipidemia, diabetes, depression, coronary artery disease, status post stenting in 201 3. He came in with left-sided chest pain that is sharp, stabbing, radiating to the back through the left lateral wall without any nausea, vomiting, diaphoresis, PND, orthopnea, pedal edema, palpitation , or syncope. His pain was not exertional. Denied any fever or chills. By the time I saw him, he h as already ruled out for an [place]. Past Medical History: As stated above. Allergies: INCLUDE LIPITOR AND PRAVASTATIN. Review of Systems: Negative. Social History: Negative. Family History: Positive for diabetes and heart disease. Medications: At home include Zoloft, metformin, Ozempic, Plavix, losartan, Amaryl, and Neurontin. Physical Examination: Vital Signs: Stable. Afebrile. HEENT: Negative. Neck: Supple with no bruit, lymphadenopathy, JVD, or thyromegaly. Chest: Clear to auscultation and percussion. Cardiac: Revealed a regular rhythm and rate. No murmurs, gallops, or rubs. Abdomen: Benign. Extremities: Revealed no clubbing, cyanosis, or edema. Diagnostic Data: All normal. Impression And Plan: Atypical chest pain. It is nonexertional and radiates to the back. It is fawad p. It is lasted in 1-1/2 hours, but yet his EKG and troponin and CPKs and MBs are normal. I am comf ortable with him going home. I think he needs to have an outpatient stress test and an echocardiogra m. His stress test should be an MPI. He has not had a stress test for many years. His other proble ms including depression, diabetes, hypertension, and dyslipidemia are well controlled. Case was disc ussed with Dr. Crain. He can go home and I will make an arrangement for him to have an outpatient wo rkup. SOPHIA/CYNTHIA Voice ID: [id number] Report ID: [id number]
== END 2021-01-03 14:48 | disposition home or self-care (01) ==
LOC: ER 20:15 → ERHOLD 22:38 → 2ND 01-03 00:43
PROVIDERS: ADMIT Hospitalist; ATTEND Hospitalist
DX: R07.89 Other chest pain (principal); I25.10 Atherosclerotic heart disease of native coronary artery without angina pectoris; I10 Essential (primary) hypertension; E11.65 Type 2 diabetes mellitus with hyperglycemia; E78.5 Hyperlipidemia, unspecified; I25.2 Old myocardial infarction; E78.00 Pure hypercholesterolemia, unspecified; F32.9 Major depressive disorder, single episode, unspecified; F17.210 Nicotine dependence, cigarettes, uncomplicated; Z71.6 Tobacco abuse counseling; Z95.5 Presence of coronary angioplasty implant and graft; Z79.02 Long term (current) use of antithrombotics/antiplatelets; Z79.899 Other long term (current) drug therapy; Z82.49 Family history of ischemic heart disease and other diseases of the circulatory system; Z83.3 Family history of diabetes mellitus
CPT/HCPCS: 36415; 71045; 80048; 80053; 80061; 80076; 82947; 83735; 83880; 84439; 84443; 84484; 85025; 85610; 93005; 96372; 96374; 99285; G0378; J1650; J2270; J2405

== ENCOUNTER 2021-11-28 18:36 | Emergency (ER) | payer SELFPAY ==
--- OUTSIDE RECORDS SUMMARY | 2021-11-28 18:38 | XMS REPORT | Continuity of Care Document ---
:1965 Author Organization [facility] t Address [address] [place] [address] [address]. [address] [place] [address] Care Team Providers Name Role Phone Unavailable Unavailable Unavailable Payers Payer Name Policy Type Policy Number Effective Date Expiration Date S ource SELF-PAY CI [id number] Problems This patient has no known problems. Allergies, Adverse Reactions, Alerts This patient has no known allergies or adverse reactions. Medications This patient has no known medications. Procedures This patient has no known procedures. Encounters Start End Encounter Admission Attending Care Care Encounter Source Date/Time Date/Time Type Type Clinicians Facility Department ID 2021-08-11 Outpatient IBNS IBNS [id number] [place]agar 12:26:50 [id number] Abe Results This patient has no known results.
--- NOTE | 2021-11-28 22:13 | ER ---
Nurse's Notes [facility] Name: Ender Herrera Age: 56 yrs Sex: Male : 1965 Arrival Date: 11/28/2021 Time: 18:38 Bed Waiting Private MD: Diagnosis: Presentation: 11/28 18:44 Chief complaint: Patient states: started having heaviness to left side if his face iw since yesterday, is unable to close his left eyelid normally, has been dealing with a rash all over his body for past 4 weeks and has been on prednisone the past week. Coronavirus screen: At this time, the client does not indicate any symptoms associated with coronavirus-19. Ebola Screen: Patient negative for fever greater than or equal to 101.5 degrees Fahrenheit, and additional compatible Ebola Virus Disease symptoms Patient denies exposure to infectious person. Patient denies travel to an Ebola-affected area in the 21 days before illness onset. No symptoms or risks identified at this time. 18:44 Method Of Arrival: Wheelchair iw 18:44 Acuity: MEMO 4 iw 18:59 Initial Sepsis Screen: Does the patient meet any 2 criteria? No. Patient's initial iw sepsis screen is negative. Does the patient have a suspected source of infection? No. Patient's initial sepsis screen is negative. Risk Assessment: Do you want to hurt yourself or someone else? Patient reports no desire to harm self or others. Onset of symptoms was November 27, 2021. Historical: - Allergies: 19:00 atorvastatin; iw 19:00 pravastatin; iw 19:00 Vicodin; iw - PMHx: 19:00 Diabetes - IDDM; High Cholesterol; Hypertension; Myocardial infarction; iw Vital Signs: 18:59 BP 122 / 77; Pulse 85; Resp 16; Temp 97.9; Pulse Ox 97% on R/A; iw ED Course: 18:38 Patient arrived in ED. ds1 18:45 Triage completed. iw 19:00 Arm band placed on. iw Administered Medications: No medications were administered Outcome: 22:12 Patient left the ED. tw5 Signatures: Divya Domínguez ds1 Donna Tsai RN RN iw Hoa Jiménez tw5 Corrections: (The following items were deleted from the chart) 19:00 18:44 Chief complaint: Patient states: started having heaviness to left side if his iw face today, is unable to close his left eyelid normally, has been dealing with a rash all over his body and has been on prednisone, iw
[2021-11-28 22:16] VITALS: BP 122/77; TEMP 97.9; O2SAT 97
== END 2021-11-28 22:12 | disposition left against medical advice (07) ==
LOC: ER 18:36
DX: Z53.21 Procedure and treatment not carried out due to patient leaving prior to being seen by health care provider (principal)
CPT/HCPCS: 99281

== ENCOUNTER 2022-05-22 18:16 | Emergency (ER) | payer SELFPAY ==
--- OUTSIDE RECORDS SUMMARY | 2022-05-22 18:18 | XMS REPORT | Continuity of Care Document ---
:1965 Author Organization [facility] t Address [address] [place] [address] Dr. Eagle [address] [place] [id number] Care Team Providers Name Role Phone Unavailable Unavailable Unavailable Payers Payer Name Policy Type Policy Number Effective Date Expiration Date S ource SELF-PAY CI [id number] Problems This patient has no known problems. Allergies, Adverse Reactions, Alerts This patient has no known allergies or adverse reactions. Medications This patient has no known medications. Procedures This patient has no known procedures. Encounters Start End Encounter Admission Attending Care Care Encounter Source Date/Time Date/Time Type Type Clinicians Facility Department ID 2021-08-11 Outpatient IBNS IBNS [id number] Sagar 12:26:50 [id number] Abe Results This patient has no known results.
[2022-05-22 19:57] LABS: Urine Blood Trace-lysed (Negative); Urine Glucose 2+ (Negative); Urine Protein 3+ (Negative); Urine Specific Gravity >=1.030 (1.005-1.030); Urine pH 5.5 (5.0-7.0)
[2022-05-22 20:01] LABS: Absolute Lymphocytes (CBC) 2.5 K/uL (0.7-4.9); Hematocrit 41.5 % (39.6-49.0); Lymphocytes % 41.1 % (15.3-44.8); MCV 92.3 fL (80-100); MPV 9.6 fL (7.6-11.3)
[2022-05-22 20:17] LABS: Urine Mucus Slight /HPF (None Seen); Urine RBC <5 /HPF (None Seen)
[2022-05-22 20:20] LABS: Albumin 3.4 g/dL (3.4-5.0); Bilirubin Total 0.3 mg/dL (0.2-1.0); Potassium 3.9 mmol/L (3.5-5.1)
--- NOTE | 2022-05-22 22:12 | RAD REPORT ---
EXAM DESCRIPTION: CTAbdomen Pelvis W Contrast - 05/22/2022 9:52 pm CLINICAL HISTORY: diarrhea times 2 months COMPARISON: <Comparisons> TECHNIQUE: CT of the abdomen and pelvis was performed. All CT scans are performed using dose optimization technique as appropriate and may include automated exposure control or mA/KV adjustment according to patient size. FINDINGS: Lower chest: No acute abnormality. Liver: No acute abnormality or suspicious lesions. Biliary: No biliary ductal dilatation. Stomach: No significant focal abnormality. Duodenum: No significant focal abnormality. Pancreas: No significant abnormality. Spleen: No significant abnormality. Adrenal: No suspicious lesions. Kidney/ureter: No hydronephrosis. Punctate stone in lower pole left kidney. Retroperitoneum: No retroperitoneal adenopathy. Vascular: No aneurysm. Bowel: No significant focal abnormality. Normal appendix. Peritoneum: No ascites or free air. Bladder: Grossly unremarkable. Reproductive: No adnexal masses. Bones: No acute fracture. Other: n/a IMPRESSION: No acute intra-abdominal or pelvic finding. Punctate nonobstructing stone left kidney. N ormal appendix .
--- NOTE | 2022-05-22 22:52 | EDPHYS ---
Physician Documentation [facility] Name: Ender Herrera Age: 56 yrs Sex: Male : 1965 Arrival Date: 05/22/2022 Time: 18:19 Bed 18 Private MD: Drea Allen ED Physician Loida Fishman HPI: 05/22 20:00 This 56 yrs old Male presents to ER via Ambulatory with complaints of cp Abdominal Pain - feels warm, Diarrhea. 20:00 The patient presents with abdominal pain that is diffuse, abdominal distention that is cp diffuse. Onset: The symptoms/episode began/occurred 2 month(s) ago. Associated signs and symptoms: Pertinent positives: diarrhea. 20:00 Patient reports taking prescribed antibiotics for treatment of h.pylori about 3 months cp ago. Took antibiotics for about 1 month. Has been taking OTC Pepto Bismol with last dose yesterday. 20:00 The symptoms are described as waxing/waning, abdomen feels "warm". cp Historical: - Allergies: 18:47 atorvastatin; jl7 18:47 pravastatin; jl7 18:47 Vicodin; jl7 - Home Meds: 18:47 losartan 50 mg Oral tab 1 tab once daily [Active]; metformin 1,000 mg Oral tab 1 tab 2 jl7 times per day [Active]; gabapentin 300 mg Oral cap daily [Active]; clopidogrel 75 mg Oral tab 1 tab once daily [Active]; - PMHx: 18:47 Diabetes - IDDM; High Cholesterol; Hypertension; Myocardial infarction; jl7 - PSHx: 18:47 cardiac stent; jl7 - Immunization history:: Client reports receiving the 2nd dose of the Covid vaccine. - Social history:: Smoking status: Patient denies any tobacco usage or history of. ROS: 20:05 Constitutional: Negative for body aches, chills, fever, poor PO intake. cp 20:05 Eyes: Negative for injury, pain, redness, and discharge. cp 20:05 ENT: Negative for drainage from ear(s), ear pain, sore throat, difficulty swallowing, difficulty handling secretions. 20:05 Cardiovascular: Negative for chest pain, edema, palpitations. 20:05 Respiratory: Negative for cough, shortness of breath, wheezing. 20:05 Abdomen/GI: Positive for abdominal pain, diarrhea, dark colored stool, Negative for nausea, vomiting, constipation, anorexia. 20:05 : Negative for urinary symptoms. 20:05 Neuro: Negative for altered mental status, dizziness, headache, syncope, weakness. 20:05 All other systems are negative. Exam: 20:10 Constitutional: The patient appears in no acute distress, alert, awake, cp non-diaphoretic, non-toxic, well developed, well nourished. 20:10 Head/Face: Normocephalic, atraumatic. cp 20:10 Eyes: Periorbital structures: appear normal, Conjunctiva: normal, no exudate, no injection, Sclera: no appreciated abnormality, Lids and lashes: appear normal, bilaterally. 20:10 ENT: External ear(s): are unremarkable, Nose: is normal, Mouth: Lips: moist, Oral mucosa: pink and intact, moist, Posterior pharynx: Airway: no evidence of obstruction, patent. 20:10 Chest/axilla: Inspection: normal. 20:10 Cardiovascular: Rate: normal, Rhythm: regular. 20:10 Respiratory: the patient does not display signs of respiratory distress, Respirations: normal, no use of accessory muscles, no retractions, labored breathing, is not present, Breath sounds: are clear throughout, no decreased breath sounds, no stridor, no wheezing. 20:10 Abdomen/GI: Inspection: abdomen appears normal, Bowel sounds: active, all quadrants, Palpation: soft, in all quadrants, nontender, in all quadrants, rebound tenderness, is not appreciated, involuntary guarding, is not appreciated. 20:10 Back: pain, is absent, ROM is normal. 20:10 Neuro: Orientation: to person, place \\T\\ time. Mentation: is normal, Motor: moves all fours, strength is normal, Sensation: is normal. Vital Signs: 18:45 BP 130 / 80; Pulse 80; Resp 15; Temp 97.9; Pulse Ox 99% ; Weight 97.52 kg; Height 5 ft. jl7 7 in. (170.18 cm); Pain 2/10; 20:00 BP 114 / 72; Pulse 68; Resp 16; Pulse Ox 100% ; vc1 21:00 BP 128 / 71; Pulse 64; Resp 15; Pulse Ox 97% ; vc1 22:00 BP 117 / 76; Pulse 67; Resp 16; Pulse Ox 97% on R/A; vc1 23:00 BP 120 / 73; Pulse 65; Resp 15; Pulse Ox 93% on R/A; vc1 18:45 Body Mass Index 33.67 (97.52 kg, 170.18 cm) jl7 MDM: 19:18 Patient medically screened. 22:50 Data reviewed: vital signs, nurses notes, lab test result(s), radiologic studies, CT cp scan. 22:50 Differential diagnosis: bowel obstruction, cholecystitis, Cholelithiasis, gastritis, GI cp Bleed, non-specific abd pain, pancreatitis, Peptic Ulcer Disease, Perf. Duodenal Ulcer, Perf. Gastric Ulcer. Counseling: I had a detailed discussion with the patient and/or guardian regarding: the historical points, exam findings, and any diagnostic results supporting the discharge/admit diagnosis, lab results, radiology results, the need for outpatient follow up, a technical support manager, to return to the emergency department if symptoms worsen or persist or if there are any questions or concerns that arise at home. Special discussion: Based on the patient's Hx, exam, and Dx evaluation, there is no indication for emergent surgery or inpatient Tx. It is understood by the patient/guardian that if the Sx's persist or worsen they need to return immediately for re-evaluation. 05/22 19:26 Order name: CBC with Diff; Complete Time: 22:26 05/22 22:26 Interpretation: Normal except: DEIRDRE% 40.5; MN% 12.7; BASO% 2.1. 05/22 19:26 Order name: CMP; Complete Time: 22:26 05/22 22:26 Interpretation: Normal except: NA 135; GLUC 247; BUN 19; AST 14; ALK 172; GLOB 3.6; A/G cp 0.9. 05/22 19:26 Order name: Lipase; Complete Time: 22:26 05/22 19:26 Order name: Urine Microscopic Only; Complete Time: 22:26 05/22 19:26 Order name: Occult Blood; Complete Time: 22:26 05/22 22:28 Interpretation: Reviewed. 05/22 19:26 Order name: Ova And Parasites 05/22 19:26 Order name: IV Saline Lock; Complete Time: 20:04 05/22 19:26 Order name: Labs collected and sent; Complete Time: 19:45 cp 05/22 19:26 Order name: Urine Dipstick-Ancillary (obtain specimen); Complete Time: 19:55 cp 05/22 19:26 Order name: Rotavirus Antigen; Complete Time: 22:26 cp 05/22 19:26 Order name: Stool Culture cp 05/22 19:26 Order name: CT Abd/Pelvis - PO and IV Contrast; Complete Time: 22:26 cp 05/22 22:27 Interpretation: Report reviewed. cp 05/22 19:58 Order name: Urine Dipstick-Ancillary; Complete Time: 22:26 EDMS 05/22 22:36 Order name: PO challenge; Complete Time: 22:49 cp Administered Medications: No medications were administered Disposition Summary: 05/22/22 22:52 Discharge Ordered Location: Home cp Problem: new cp Symptoms: have improved cp Condition: Stable cp Diagnosis - Diarrhea, unspecified cp - Abdominal pain, unspecified cp Followup: cp - With: Ok Ventura MD - When: 2 - 3 days - Reason: Recheck today's complaints Discharge Instructions: - Discharge Summary Sheet cp - Abdominal Pain, Adult cp - Food Choices to Help Relieve Diarrhea, Adult cp - Diarrhea, Adult cp Forms: - Medication Reconciliation Form cp - Thank You Letter cp - Antibiotic Education cp - Prescription Opioid Use cp Signatures: Dispatcher [employer] EDVA Josesito Patel PA PA cp Mukesh Crespo RN RN jl7 Corrections: (The following items were deleted from the chart) 05/23 19:44 05/22 20:00 Patient reports taking prescribed antibiotics for treatment of h.pylori cp about 3 months ago. Took antibiotics for about 1 month. cp
--- NOTE | 2022-05-22 22:52 | ER ---
Nurse's Notes [facility] Name: Ender Herrera Age: 56 yrs Sex: Male : 1965 Arrival Date: 05/22/2022 Time: 18:19 Bed 18 Private MD: Drea Allen Diagnosis: Diarrhea, unspecified;Abdominal pain, unspecified Presentation: 05/22 18:45 Chief complaint: Patient states: Abdominal pain x 2 months, dx with H Pylori, out of jl7 antibiotics x2 months, taking pepto and reports dark stool. Coronavirus screen: At this time, the client does not indicate any symptoms associated with coronavirus-19. Ebola Screen: No symptoms or risks identified at this time. Initial Sepsis Screen: Does the patient meet any 2 criteria? No. Patient's initial sepsis screen is negative. Does the patient have a suspected source of infection? No. Patient's initial sepsis screen is negative. Risk Assessment: Do you want to hurt yourself or someone else? Patient reports no desire to harm self or others. Onset of symptoms was March 2022. 18:45 Method Of Arrival: Ambulatory [facility] 18:45 Acuity: MEMO 3 jl7 Triage Assessment: 18:47 General: Appears in no apparent distress. uncomfortable, Behavior is calm, cooperative, jl7 appropriate for age. Pain: Complains of pain in abdomen Pain currently is 2 out of 10 on a pain scale. GI: Reports lower abdominal pain, upper abdominal pain. Historical: - Allergies: 18:47 atorvastatin; jl7 18:47 pravastatin; jl7 18:47 Vicodin; jl7 - Home Meds: 18:47 losartan 50 mg Oral tab 1 tab once daily [Active]; metformin 1,000 mg Oral tab 1 tab 2 jl7 times per day [Active]; gabapentin 300 mg Oral cap daily [Active]; clopidogrel 75 mg Oral tab 1 tab once daily [Active]; - PMHx: 18:47 Diabetes - IDDM; High Cholesterol; Hypertension; Myocardial infarction; jl7 - PSHx: 18:47 cardiac stent; jl7 - Immunization history:: Client reports receiving the 2nd dose of the Covid vaccine. - Social history:: Smoking status: Patient denies any tobacco usage or history of. Screenin:32 Abuse screen: Denies threats or abuse. Nutritional screening: No deficits noted. vc1 Tuberculosis screening: No symptoms or risk factors identified. Fall Risk None identified. Assessment: 19:50 Reassessment: finished oral contrast. vc1 20:32 GI: Bowel sounds present X 4 quads. Abd is soft Abd is non tender X 4 quads. vc1 21:58 Reassessment: No changes from previously documented assessment. Patient and/or family vc1 updated on plan of care and expected duration. Pain level reassessed. 23:10 Reassessment: No changes from previously documented assessment. Patient and/or family vc1 updated on plan of care and expected duration. Pain level reassessed. Vital Signs: 18:45 BP 130 / 80; Pulse 80; Resp 15; Temp 97.9; Pulse Ox 99% ; Weight 97.52 kg; Height 5 ft. jl7 7 in. (170.18 cm); Pain 2/10; 20:00 BP 114 / 72; Pulse 68; Resp 16; Pulse Ox 100% ; vc1 21:00 BP 128 / 71; Pulse 64; Resp 15; Pulse Ox 97% ; vc1 22:00 BP 117 / 76; Pulse 67; Resp 16; Pulse Ox 97% on R/A; vc1 23:00 BP 120 / 73; Pulse 65; Resp 15; Pulse Ox 93% on R/A; vc1 18:45 Body Mass Index 33.67 (97.52 kg, 170.18 cm) jl7 ED Course: 18:19 Patient arrived in ED. am2 18:20 Drea Allen is Private Physician. am2 18:21 Josesito Patel PA is PHCP. cp 18:21 Loida Fishman MD is Attending Physician. cp 18:47 Triage completed. jl7 18:47 Arm band placed on right wrist. jl7 19:28 Maria Del Carmen Thomas, RN is Primary Nurse. vc1 19:35 Inserted saline lock: 22 gauge in right forearm, using aseptic technique. Missed vc1 attempt(s): 20 gauge Bleeding controlled, band aid applied, catheter tip intact. 19:45 CBC with Diff Sent. vc1 19:45 CMP Sent. vc1 19:45 Lipase Sent. vc1 19:55 Occult Blood Sent. vc1 19:55 Ova And Parasites Sent. vc1 19:55 Rotavirus Antigen Sent. vc1 19:55 Stool Culture Sent. vc1 19:55 Urine Microscopic Only Sent. vc1 19:55 Lipase Sent. vc1 19:55 CMP Sent. vc1 19:55 CBC with Diff Sent. vc1 20:32 Patient has correct armband on for positive identification. Pulse ox on. NIBP on. vc1 21:54 CT Abd/Pelvis - PO and IV Contrast In Process Unspecified. EDMS 22:49 Ok Ventura MD is Referral Physician. cp 23:08 No provider procedures requiring assistance completed. IV discontinued. vc1 Administered Medications: No medications were administered Medication: 20:32 VIS not applicable for this client. vc1 Outcome: 22:52 Discharge ordered by . cp 23:09 Condition: good vc1 23:18 Discharged to home ambulatory, with significant other. vc1 23:18 Discharge instructions given to patient, significant other. 23:18 Instructed on discharge instructions, follow up and referral plans. Demonstrated understanding of instructions, follow-up care. 23:18 Patient left the ED. vc1 Signatures: Dispatcher [employer] EDNV Josesito Patel PA PA cp Leal, Jahala RN RN jl7 Tiffany Burnett am2 Maria Del Carmen Thomas RN RN vc1
[2022-05-22 23:37] VITALS: TEMP 97.9
[2022-05-22 23:50] VITALS: BP 120/73; O2SAT 93
== END 2022-05-22 23:18 | disposition home or self-care (01) ==
LOC: ER 18:16
DX: R19.7 Diarrhea, unspecified (principal)
CPT/HCPCS: 36415; 74177; 80053; 81003; 81015; 82274; 83690; 85025; 87045; 87046; 87177; 87209; 87425; 99284; Q9967

== ENCOUNTER 2023-02-14 02:55 | Emergency (ER) | payer OTHER, SELFPAY ==
--- OUTSIDE RECORDS SUMMARY | 2023-02-14 02:57 | XMS REPORT | Continuity of Care Document ---
:1965 Author Organization [facility] t Address [address] [place] [address] Care Team Providers Name Role Phone Unavailable Unavailable Unavailable Payers Payer Name Policy Type Policy Number Effective Date Expiration Date S ource SELF-PAY CI [id number] Problems This patient has no known problems. Allergies, Adverse Reactions, Alerts This patient has no known allergies or adverse reactions. Medications This patient has no known medications. Procedures This patient has no known procedures. Encounters Start End Encounter Admission Attending Care Care Encounter Source Date/Time Date/Time Type Type Clinicians Facility Department ID 2021-08-11 Outpatient IBNS IBNS [id number] [facility] 12:26:50 [id number] [facility] 2022-09-14 2022-09-14 Outpatient PRIV PRIV [id number] [id number] [facility] 00:00:00 00:00:00 [id number] Medica l Results This patient has no known results.
[2023-02-14 04:24] LABS: Absolute Lymphocytes (CBC) 2.4 K/uL (0.7-4.9); Lymphocytes % 39.9 % (15.3-44.8); MCV 91.8 fL (80-100); Platelets 218 thou/uL (152-406); RBC Red Blood Cell Count 4.25 M/uL (4.33-5.43)
[2023-02-14 04:28] LABS: Protime INR 0.87
[2023-02-14] MEDS ORDERED: CYCLOBENZAPRINE 10 MG TAB ONE (04:36)
[2023-02-14] MEDS ORDERED: TRAMADOL HCL 50 MG TAB ONE (04:36)
[2023-02-14 04:45] LABS: ALT/SGPT 24 U/L (16-61); AST/SGOT 15 U/L (15-37); Albumin 3.3 g/dL (3.4-5.0); Alkaline Phosphatase 165 U/L (45-117); BUN Blood Urea Nitrogen 12 mg/dL (7-18); Bicarbonate 27 mEq/L (21-32); Bilirubin Total 0.3 mg/dL (0.2-1.0); Glomerular Filtration Rate 120 ml/min (=/>90); Glucose Level 215 mg/dL (74-106); Magnesium 1.9 mg/dL (1.6-2.4); NT PRO-BNP 88 pg/mL (<125); Potassium 3.5 mEq/L (3.5-5.1); Protein, Total 7.1 g/dL (6.4-8.2); Sodium Level 137 mEq/L (136-145); Troponin High Sensitivity 5.2 pg/mL (<58.9)
[2023-02-14 04:48] LABS: Bilirubin Direct < 0.1 mg/dL (0-0.2); Bilirubin Indirect, Calculated ND mg/dL (0.2-0.8)
--- NOTE | 2023-02-14 06:53 | ER ---
Nurse's Notes [facility] Name: Ender Herrera Age: 57 yrs Sex: Male : 1965 Arrival Date: 02/14/2023 Time: 02:55 Bed 8 Private MD: Diagnosis: Acute bilateral lower extremity dependent edema, bilateral lower extremity edema, diabetic neuropathy bilateral Presentation: 02/14 03:51 Chief complaint: Patient states: bilateral ankle swelling with right leg tingling, pf1 numbness and pain of 7,onset yesterday. Coronavirus screen: Vaccine status: Patient reports receiving the 2nd dose of the covid vaccine. 3 doses of Moderna Client denies travel out of the [place] in the last 14 days. At this time, the client does not indicate any symptoms associated with coronavirus-19. Ebola Screen: Patient negative for fever greater than or equal to 101.5 degrees Fahrenheit, and additional compatible Ebola Virus Disease symptoms. 03:51 Method Of Arrival: Ambulatory pf1 04:05 Initial Sepsis Screen: Does the patient meet any 2 criteria? No. Patient's initial kd3 sepsis screen is negative. Does the patient have a suspected source of infection? No. Patient's initial sepsis screen is negative. Risk Assessment: Do you want to hurt yourself or someone else? Patient reports no desire to harm self or others. Onset of symptoms was February 14, 2023. 04:05 Acuity: MEMO 3 kd3 Triage Assessment: 04:06 General: Appears uncomfortable, Behavior is calm, cooperative. Pain: Complains of pain kd3 in right leg and left leg. Neuro: Level of Consciousness is awake, alert, obeys commands, Oriented to person, place, time, situation. Musculoskeletal: Swelling present in right ankle, anterior aspect of right ankle, left lateral ankle, left medial ankle and anterior aspect of left ankle. Historical: - Allergies: 04:06 atorvastatin; kd3 04:06 pravastatin; kd3 04:06 Vicodin; kd3 - PMHx: 04:06 Diabetes - IDDM; Myocardial infarction; Hypertension; High Cholesterol; kd3 - PSHx: 04:06 cardiac stent; kd3 - Immunization history:: Adult Immunizations up to date. - Social history:: Smoking status: Patient reports the use of cigarette tobacco products, denies chronic smoking, but will smoke occasionally. - Family history:: not pertinent. Screenin:20 [facility] ED Fall Risk Assessment (Adult) History of falling in the last 3 months, kd3 including since admission No falls in past 3 months (0 pts) Confusion or Disorientation No (0 pts) Intoxicated or Sedated No (0 pts) Impaired Gait No (0 pts) Mobility Assist Device Used No (0 pt) Altered Elimination No (0 pt) Score/Fall Risk Level 0 - 2 = Low Risk Maintained a safe environment. Abuse screen: Denies threats or abuse. Denies injuries from another. Nutritional screening: No deficits noted. Tuberculosis screening: No symptoms or risk factors identified. Assessment: 05:45 General: Appears in no apparent distress. Behavior is calm, cooperative. Neuro: Level kd3 of Consciousness is awake, alert, obeys commands, Oriented to person, place, time, situation. Cardiovascular: Patient's skin is warm and dry. Musculoskeletal: Swelling present in right ankle and left lateral ankle. Vital Signs: 04:05 BP 152 / 92; Pulse 67; Resp 16; Temp 98(O); Pulse Ox 97% on R/A; Weight 95.25 kg; kd3 Height 5 ft. 7 in. ; 04:57 BP 126 / 86; Pulse 63; Resp 15; Pulse Ox 100% on R/A; kd3 05:45 BP 126 / 75; Pulse 62; Resp 18; Pulse Ox 97% on R/A; kd3 06:16 BP 111 / 79; Pulse 61; Resp 19; Pulse Ox 97% on R/A; kd3 04:05 Body Mass Index 32.89 (95.25 kg, 170.18 cm) kd3 ED Course: 03:00 Patient arrived in ED. am2 03:50 Brian Sanchez MD is Attending Physician. sp4 04:05 Marie Henry, TAINA is Primary Nurse. kd3 04:06 Triage completed. kd3 04:06 Arm band placed on right wrist. kd3 04:08 XRAY Chest (1 view) In Process Unspecified. EDMS 04:19 Basic Metabolic Panel Sent. kd3 04:19 CBC with Diff Sent. kd3 04:19 LFT's Sent. kd3 04:19 Magnesium Sent. kd3 04:20 Patient has correct armband on for positive identification. Provided Education on: . kd3 04:20 NT PRO-BNP Sent. kd3 04:20 PT-INR Sent. kd3 04:20 Troponin HS Sent. kd3 04:20 No provider procedures requiring assistance completed. Inserted saline lock: 20 gauge kd3 in right forearm, using aseptic technique. Blood collected. 04:47 Extrem Venous W Compression Obie US In Process Unspecified. EDMS Administered Medications: 04:57 Drug: Cyclobenzaprine PO 10 mg Route: PO; kd3 04:57 Drug: traMADol PO 100 mg Route: PO; kd3 Medication: 04:20 VIS not applicable for this client. kd3 Outcome: 04:20 Condition: stable kd3 06:53 Discharge ordered by . sp4 07:35 Discharged to home via wheelchair, with family. iw 07:35 Discharge instructions given to patient, family, Instructed on discharge instructions, follow up and referral plans. Demonstrated understanding of instructions, follow-up care. 07:40 Patient left the ED. iw Signatures: Dispatcher [employer] EDMS Donna Tsai, RN RN iw Tiffany Burnett Kyli, RN RN kd3 Darleen Garcia RN RN pf1 Brian Sanchez MD MD sp4
--- NOTE | 2023-02-14 06:53 | EDPHYS ---
Physician Documentation [facility] Name: Ender Herrera Age: 57 yrs Sex: Male : 1965 Arrival Date: 02/14/2023 Time: 02:55 Bed 8 Private MD: ED Physician Brian Sanchez HPI: 02/14 03:56 This 57 yrs old Male presents to ER via Unassigned with complaints of Ankle sp4 Swelling. 03:56 This is a very pleasant 67-year-old male with history of diabetes, presents with acute sp4 bilateral lower extremity edema starting yesterday as reported by the patient. Patient also reported chronic diabetic neuropathy in bilateral lower extremities.. Patient denied chest pain, or shortness of breath. Historical: - Allergies: 04:06 atorvastatin; kd3 04:06 pravastatin; kd3 04:06 Vicodin; kd3 - PMHx: 04:06 Diabetes - IDDM; Myocardial infarction; Hypertension; High Cholesterol; kd3 - PSHx: 04:06 cardiac stent; kd3 - Immunization history:: Adult Immunizations up to date. - Social history:: Smoking status: Patient reports the use of cigarette tobacco products, denies chronic smoking, but will smoke occasionally. - Family history:: not pertinent. ROS: 03:57 Constitutional: Negative for fever, chills, and weight loss, MS/Extremity: Negative for sp4 injury and deformity, positive bilateral lower extremity swelling 03:57 All other systems are negative. Exam: 03:57 Constitutional: This is a well developed, well nourished patient who is awake, alert, sp4 and in no acute distress. Head/Face: Normocephalic, atraumatic. Eyes: Pupils equal round and reactive to light, extra-ocular motions intact. Lids and lashes normal. Conjunctiva and sclera are not injected. Cornea within normal limits. Periorbital areas with no swelling, redness, or edema. ENT: Nares patent. No nasal discharge, no septal abnormalities noted. Tympanic membranes are normal and external auditory canals are clear. Oropharynx with no redness, swelling, or masses, exudates, or evidence of obstruction, uvula midline. Mucous membranes moist. Neck: Trachea midline, no thyromegaly or masses palpated, and no cervical lymphadenopathy. Supple, full range of motion without nuchal rigidity, or vertebral point tenderness. Chest/axilla: Normal chest wall appearance and motion. Nontender with no deformity. No lesions are appreciated. Cardiovascular: Regular rate and rhythm with a normal S1 and S2. No gallops, murmurs, or rubs. Normal PMI, no JVD. No pulse deficits. Respiratory: Lungs have equal breath sounds bilaterally, clear to auscultation and percussion. No rales, rhonchi or wheezes noted. No increased work of breathing, no retractions or nasal flaring. Abdomen/GI: Soft, non-tender, with normal bowel sounds. No distension or tympany. No guarding or rebound. No evidence of tenderness throughout. Back: No spinal tenderness. No costovertebral tenderness. Skin: Warm, dry with normal turgor. Normal color with no rashes, no lesions, and no evidence of cellulitis. MS/ Extremity: Pulses equal, no cyanosis. Neurovascular intact. Full, normal range of motion. Mild bilateral ankle and foot edema with mild pitting Neuro: Awake and alert, GCS 15, oriented to person, place, time, and situation. Cranial nerves II-XII grossly intact. Motor strength 5/5 in all extremities. Sensory grossly intact. Psych: Awake, alert, with orientation to person, place and time. Behavior, mood, and affect are within normal limits 05:02 ECG was reviewed by the Attending Physician. Patient has EKG at 0 453 patient has sp4 ventricular rate of 62 bpm, left axis deviation low voltage QRS otherwise normal Vital Signs: 04:05 BP 152 / 92; Pulse 67; Resp 16; Temp 98(O); Pulse Ox 97% on R/A; Weight 95.25 kg; kd3 Height 5 ft. 7 in. ; 04:57 BP 126 / 86; Pulse 63; Resp 15; Pulse Ox 100% on R/A; kd3 05:45 BP 126 / 75; Pulse 62; Resp 18; Pulse Ox 97% on R/A; kd3 06:16 BP 111 / 79; Pulse 61; Resp 19; Pulse Ox 97% on R/A; kd3 04:05 Body Mass Index 32.89 (95.25 kg, 170.18 cm) kd3 MDM: 03:55 Patient medically screened. sp4 06:39 ED course: EXAM DESCRIPTION: Extrem Venous W Compress Obie CLINICAL HISTORY: bilateral sp4 edema TECHNIQUE: Real-time Duplex ultrasound of the bilateral lower extremity veins with 2-D ayala scale, color Doppler flow, and spectral waveform analysis. COMPARISON: None available for comparison. FINDINGS: Bilateral deep veins: The common femoral, femoral, popliteal and visualized calf veins are patent without thrombus. Normal compressibility, augmentation response, and Doppler waveforms. Bilateral superficial veins: Visualized saphenofemoral junction is patent without thrombus. IMPRESSION: No evidence of deep venous thrombosis in bilateral lower extremities.. 06:51 Differential diagnosis: sprain, arthritis, gout, cellulitis, Dependent edema. Data sp4 reviewed: vital signs, nurses notes, old medical records, lab test result(s), EKG, radiologic studies, plain films, ultrasound. Consideration of Admission/Observation Escalation of care including admission/observation considered. ED course: Is no sign of blood clots, no sign of kidney failure, and there is no sign of heart failure. Will advise patient to wear compression stockings and ambulate is much as possible . 02/14 03:56 Order name: Basic Metabolic Panel; Complete Time: 05:02 sp4 02/14 03:56 Order name: CBC with Diff; Complete Time: 04:48 sp4 02/14 03:56 Order name: LFT's; Complete Time: 05:02 sp4 02/14 03:56 Order name: Magnesium; Complete Time: 05:02 sp4 02/14 03:56 Order name: NT PRO-BNP; Complete Time: 05:02 sp4 02/14 03:56 Order name: PT-INR; Complete Time: 04:48 sp4 02/14 03:56 Order name: Troponin HS; Complete Time: 05:02 sp4 02/14 03:56 Order name: XRAY Chest (1 view) sp4 02/14 03:56 Order name: Extrem Venous W Compression Obie US 02/14 03:56 Order name: EKG; Complete Time: 03:56 sp4 02/14 03:56 Order name: Cardiac monitoring; Complete Time: 04:19 sp4 02/14 03:56 Order name: EKG - Nurse/Tech; Complete Time: 04:58 sp4 02/14 03:56 Order name: IV Saline Lock; Complete Time: 04:19 sp4 02/14 03:56 Order name: Labs collected and sent; Complete Time: 04:19 sp4 02/14 03:56 Order name: O2 Per Protocol; Complete Time: sp4 02/14 03:56 Order name: O2 Sat Monitoring; Complete Time: sp4 EC:02 Rate is 62 beats/min. Rhythm is regular, Sinus Rhythm. Left axis deviation noted. NV sp4 interval is normal. QRS interval is normal. QT interval is normal. T waves are Normal. No ST changes noted. Clinical impression: No evidence of ischemia. Interpreted by me. Administered Medications: 04:57 Drug: Cyclobenzaprine PO 10 mg Route: PO; kd3 04:57 Drug: traMADol PO 100 mg Route: PO; kd3 Disposition Summary: 02/14/23 06:53 Discharge Ordered Location: Home sp4 Problem: new sp4 Condition: Stable sp4 Diagnosis - Acute bilateral lower extremity dependent edema, bilateral lower extremity edema, sp4 diabetic neuropathy bilateral Followup: sp4 - With: Private Physician - When: 5 - 6 days - Reason: Recheck today's complaints Discharge Instructions: - Discharge Summary Sheet sp4 - Edema, [id number] sp4 Forms: - Work release form iw - Patient Portal Instructions sp4 Signatures: Dispatcher [employer] Marie Moe RN RN kd3 Brian Sanchez MD MD sp4
[2023-02-14 07:48] VITALS: TEMP 98
[2023-02-14 07:50] VITALS: O2SAT 97
[2023-02-14 07:51] VITALS: BP 111/79
--- NOTE | 2023-02-14 12:59 | EKG ---
Test Date: 2023-02-14 Test Time: 04:53:04 [facility] [place]: [facility] MEASUREMENT RESULTS: Intervals: Rate: 62 UT: 162 QRSD: 88 QT: 416 QTc: 422 [place]: P: 79 UT: 162 QRS: -75 T: 45 INTERPRETIVE STATEMENTS: Normal sinus rhythm Left axis deviation Low voltage QRS Inferior infarct, age undetermined Possible Anterolateral infarct, age undetermined Abnormal ECG Compared to ECG 01/02/2021 20:28:00 No significant changes Electronically Signed On 02-14-23 12:58:33 CDT by Shahram Lopez
--- NOTE | 2023-02-15 15:53 | RAD REPORT ---
EXAM DESCRIPTION: RAD - Chest Single View - 02/14/2023 4:06 am
--- NOTE | 2023-02-15 17:31 | RAD REPORT ---
EXAM DESCRIPTION: US - Extrem Venous W Compress Obie - 02/14/2023 4:45 am CLINICAL HISTORY: Bilateral edema TECHNIQUE: Real-time Duplex ultrasound of the bilateral lower extremity veins with 2-D ayala scale, c olor Doppler flow, and spectral waveform analysis. COMPARISON: None available for comparison. FINDINGS: Bilateral deep veins: The common femoral, femoral, popliteal and visualized calf veins are patent without thrombus. Normal compressibility, augmentation response, and Doppler waveforms. Bilateral superficial veins: Visualized saphenofemoral junction is patent without thrombus. IMPRESSION: No evidence of deep venous thrombosis in bilateral lower extremities. Electronically signed by: Arturo Mccormick MD 02/14/2023 4:56 AM CDT Due to temporary technical issues with the PACS/Fluency reporting system, reports are being signed by the in house radiologists without review as a courtesy to insure prompt reporting. The interpreting radiologist is fully responsible for the content of the report.
== END 2023-02-14 07:40 | disposition home or self-care (01) ==
LOC: ER 02:55
DX: E11.40 Type 2 diabetes mellitus with diabetic neuropathy, unspecified (principal); I10 Essential (primary) hypertension; F17.210 Nicotine dependence, cigarettes, uncomplicated; Z95.818 Presence of other cardiac implants and grafts; Z88.5 Allergy status to narcotic agent; Z88.8 Allergy status to other drugs, medicaments and biological substances
CPT/HCPCS: 36415; 71045; 80048; 80076; 83735; 83880; 84484; 85025; 85610; 93005; 93970; 99284